=== PATIENT | male | born 1940 | race Caucasian/White ===

== ENCOUNTER → 2020-10-27 11:06 | Outpatient (CLI) | payer MEDICARE, OTHER, SELFPAY ==
--- NOTE | 2020-10-27 | DI.RAD.S_ITS ---
PROCEDURE: [place] SHOULDER INJECTION MR/CT LT INDICATIONS: Impingement syndrome of left shoulder COMPARISON: [facility], CT, CT UE LT W SU, 10/27/2020, 11:45. TECHNIQUE: The indications, alternatives, benefits, risks, and complications of the procedure were explained to the patient. Written informed consent was obtained and placed in the chart. The shoulder was examined fluoroscopically and a site for needle placement chosen for entry into the glenohumeral joint from an anterior approach. The skin was prepped and draped in a sterile fashion, and 1% lidocaine infiltrated from skin down to joint capsule. A spinal needle was inserted into the glenohumeral joint, and a small amount of iodinated contrast media injected to confirm intra-articular placement of the needle tip. This was followed by approximately 12 mL of iodinated contrast. The needle was removed and a dressing was applied. The patient was given postprocedural instructions and sent to the CT suite for imaging. FINDINGS: A single fluoroscopic spot image demonstrates intra-articular location of injected iodinated contrast. IMPRESSION: Successful fluoroscopically guided administration of iodinated contrast solution into the shoulder joint for CT arthrogram. Dictated by: Ben Lowry M.D. on 10/27/2020 at 12:27 Approved by: Ben Lowry M.D. on 10/27/2020 at 12:28
--- NOTE | 2020-10-27 11:47 | DI.CT.S_ITS ---
PROCEDURE: CT UE LT W CON INDICATIONS: Impingement syndrome of left shoulder TECHNIQUE: After the intra-articular administration of 12 mL of dilute non-ionic contrast, 1-1.5 mm thick sections acquired from the acromioclavicular joint to the inferior scapula, with coronal and sagittal reformatting. COMPARISON: [facility] [place], CR, XR SHOULDER 2+ VIEWS LEFT, 07/30/2019, 9:58. [facility], , [place] SHOULDER INJECTION MR/CT LT, 10/27/2020, 12:21. FINDINGS: Image quality: Excellent. Rotator cuff: There is full-thickness, near complete tearing of the supraspinatus tendon and the anterior fibers of the infraspinatus tendon from their distal insertions with proximal tendon retraction measuring approximately 2.3 cm. The tear measures approximately 1.4 cm in anterior-posterior dimension. A few attenuated far anterior supraspinatus fibers may remain in continuity. The teres minor tendon appears to be intact. There is focal low to moderate grade intrasubstance and articular sided tearing of the subscapularis tendon at the superior insertion. There is no significant rotator cuff muscle atrophy. Bones: There is no acute fracture or dislocation. Moderate acromioclavicular joint degenerative changes are present. No focal glenohumeral cartilage defect is identified. No intra-articular loose body is identified in the glenohumeral joint space. Contrast material in the subacromial/subdeltoid bursa communicates with the glenohumeral joint space. Soft tissues: There is nondisplaced tearing of the posterosuperior labrum. The anterior labrum appears diminutive, which may be secondary to prior tearing or degeneration. The biceps long head tendon appears to be intact. A few 3-4 mm nodules are seen in the peripheral portion of included left upper lobe. A cardiac pacemaker is seen with pulse generator in the left chest. IMPRESSION: 1. Full-thickness, near complete tearing of the supraspinatus tendon and the anterior fibers of the infraspinatus tendon measuring 1.4 cm in anterior-posterior dimension with proximal tendon retraction of up to 2.3 cm. 2. Focal moderate grade intrasubstance and articular sided partial tearing of the subscapularis tendon at the superior insertion. 3. Nondisplaced tearing of the posterosuperior labrum. Diminutive appearance of the anterior labrum may be secondary to chronic tearing and/or degeneration. 4. Moderate acromioclavicular joint osteoarthrosis. 5. Nonspecific 3-4 mm nodules in the peripheral portion of the left upper lobe are most likely benign. If the patient has pulmonary risk factors, a CT chest may be obtained to evaluate for additional nodules. Dictated by: Berny Merritt M.D. on 10/27/2020 at 11:28 Approved by: Berny Merritt M.D. on 10/27/2020 at 11:45
== END ==
PROVIDERS: Referring Provider Orthopaedic Surgery; Visit Provider Orthopaedic Surgery
DX: M75.42 Impingement syndrome of left shoulder (principal); M75.122 Complete rotator cuff tear or rupture of left shoulder, not specified as traumatic; M19.012 Primary osteoarthritis, left shoulder; S43.492A Other sprain of left shoulder joint, initial encounter; R91.8 Other nonspecific abnormal finding of lung field; Z95.0 Presence of cardiac pacemaker
CPT/HCPCS: 23350; 73201; 77002

== ENCOUNTER → 2021-07-16 11:32 | Outpatient (CLI) | payer MEDICARE, OTHER, SELFPAY ==
--- NOTE | 2021-07-16 | DI.CT.S_ITS ---
PROCEDURE: CT THORACIC SPINE WO CON INDICATIONS: Spinal stenosis, lumbar and thoracic region TECHNIQUE: Noncontrast 3 mm thick sections acquired through the region of interest in the thoracic spine. Sagittal and coronal reformats were then constructed. For radiation dose reduction, the following was used: automated exposure control. COMPARISON: None. FINDINGS: Image quality: Excellent. Bones: There is normal overall bony alignment. No acute vertebral body compression fractures. No suspicious sclerotic or lytic bony lesions. Central spinal canal is of normal overall caliber. Disc space narrowing and anterolateral osteophytes noted in the lower thoracic spine Soft tissues: No paravertebral masses or hematomas. Visualized posteromedial lungs appear clear. Partially imaged heart size is enlarged, there is dense coronary artery vascular calcification as well as pacer leads noted. Surgical clips noted in the gallbladder fossa. IMPRESSION: 1. 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 Incidental cardiomegaly, dense coronary artery vascular calcification and pacer leads Approved by: William Alan M.D. on 07/16/2021 at 13:18
--- NOTE | 2021-07-16 | DI.CT.S_ITS ---
PROCEDURE: CT LUMBAR SPINE WO CON INDICATIONS: Spinal stenosis, lumbar and thoracic region TECHNIQUE: Noncontrast 3 mm thick sections acquired from the T12 level to the sacrum. Sagittal and coronal reformats were constructed. For radiation dose reduction, the following was used: automated exposure control. COMPARISON: [facility], CT, L-SPINE WITHOUT CONTRAST, 09/01/2016, 9:15. FINDINGS: Image quality: Excellent. Bones: There is mild straightening of normal lumbar lordosis. No acute vertebral body compression fractures or spondylolisthesis. No suspicious lytic or blastic bony lesions. No pars defects. T12-L1: Degenerative endplate changes are seen. No significant disc bulge, canal stenosis or neural foraminal narrowing. L1-L2: Degenerative endplate changes are noted with mild loss of disc height. No significant disc bulge, canal stenosis or neural foraminal narrowing. L2-L3: There is loss of disc height and degenerative endplate changes. Broad-based disc bulge and bilateral facet arthrosis is seen with hypertrophy of ligamentum flavum causing moderate central canal stenosis and mild bilateral neural foraminal narrowing. L3-L4: There is loss of disc height and degenerative endplate changes. Broad-based disc bulge and bilateral facet arthrosis is seen with hypertrophy of ligamentum flavum. There is moderate central canal stenosis and bilateral neural foraminal narrowing. L4-L5: Near complete loss of disc height and vacuum disc phenomenon is seen. Degenerative endplate changes are noted with broad-based disc bulge, bilateral facet arthrosis and hypertrophy of ligamentum flavum. There is moderate central canal stenosis and left worse than right bilateral neural foraminal narrowing. L5-S1: Loss of disc height and vacuum disc phenomenon is seen. Broad-based disc bulge and bilateral facet arthrosis is seen with mild central canal stenosis and moderate left worse than right bilateral neural foraminal narrowing. Soft tissues: No retroperitoneal masses or hematomas. Visualized aorta is normal in caliber. IMPRESSION: 1. Degenerative disc disease throughout lumbar spine causing [id number] central canal stenosis and bilateral neural foraminal narrowing as described above more prominent at L3-4 and L4-5 levels. 2. No acute lumbar spine fracture or dislocation. Dictated by: Sean Montero M.D. on 07/16/2021 at 12:21 Approved by: Sean Montero M.D. on 07/16/2021 at 13:27
== END ==
PROVIDERS: PCP Family Medicine; Referring Provider Physical Medicine & Rehabilitation Pain Medicine; Visit Provider Physical Medicine & Rehabilitation Pain Medicine
DX: M48.061 Spinal stenosis, lumbar region without neurogenic claudication (principal); M48.04 Spinal stenosis, thoracic region; M51.36 Other intervertebral disc degeneration, lumbar region; I25.10 Atherosclerotic heart disease of native coronary artery without angina pectoris; Z95.0 Presence of cardiac pacemaker
CPT/HCPCS: 72128; 72131

== ENCOUNTER → 2023-03-13 10:01 | Outpatient (CLI) | payer MEDICARE, OTHER, SELFPAY ==
--- NOTE | 2023-03-13 | DI.CT.S_ITS ---
PROCEDURE: CT LUMBAR SPINE WO CON INDICATIONS: Spondylosis TECHNIQUE: Noncontrast 3 mm thick sections acquired from the T12 level to the sacrum. Sagittal and coronal reformats were constructed. For radiation dose reduction, the following was used: automated exposure control. COMPARISON: [facility], CT, L-SPINE WITHOUT CONTRAST, 09/01/2016, 9:15. [facility], CT, CT LUMBAR SPINE WO CON, 07/16/2021, 11:37. [facility], CR, XR LUMBAR SPINE WITH OBLIQUES PLUS FLEXION EXTENSION, 02/28/2023, 15:35. FINDINGS: Image quality: Excellent. Bones: There is normal bony alignment. No acute vertebral body compression fractures. No suspicious lytic or blastic bony lesions. No pars defects. T12-L1: Normal. L1-L2: Normal. L2-L3: Mild loss of disc height is seen. Mild to moderate disc bulge is seen, with a central disc protrusion. Moderate bilateral neural foraminal narrowing can be seen, right worse than left. At least moderate central canal narrowing is seen. When comparison is made with the prior images, these findings are similar. L3-L4: At least moderate loss of disc height is seen. At least moderate disc bulge is seen, with a central disc protrusion. Mild to moderate facet hypertrophy can be seen. There is at least moderate bilateral neural foraminal narrowing. Moderate central canal narrowing is seen. No significant change from the prior. L4-L5: Moderate to severe loss of disc height is seen. Vacuum disc phenomenon is seen at this level. At least moderate disc bulge is seen, with a central disc protrusion. Mild to moderate facet hypertrophy is seen. At least moderate bilateral neural foraminal narrowing can be seen. At least moderate central canal narrowing is seen. Compared to the 2020 images, these imaging findings are similar. L5-S1: Moderate to severe loss of disc height is seen. Endplate irregularity and sclerosis can be seen. Vacuum disc phenomenon is seen at this level. Moderate disc bulge is seen. Posteriorly projected endplate osteophytes are seen. There is at least moderate left-sided and moderate to severe right-sided neural foraminal narrowing. Mild to moderate central canal narrowing is seen. When comparison is made with the prior images, these findings are similar. Soft tissues: No retroperitoneal masses or hematomas. Visualized aorta is normal in caliber. Atherosclerotic calcification is noted. AICD leads can be seen on the transportation inspector image. Cholecystectomy clips are seen. A normal appendix is incidentally noted. Gyuh-hx-[id number] circumferential bladder wall thickening can be seen. IMPRESSION: Multiple levels of lumbar spine degenerative change are seen, which are worst inferiorly. Compared to 2020, the imaging findings are similar. Sofr-ay-skerogwp circumferential bladder wall thickening can be seen. Please correlate with bladder outlet obstruction in a male patient this age. Additional findings: AICD Cholecystectomy Dictated by: Drake Kevin M.D. on 03/13/2023 at 15:19 Approved by: Drake Kevin M.D. on 03/13/2023 at 15:24
== END ==
PROVIDERS: PCP Physician Assistant; Referring Provider Physical Medicine & Rehabilitation Pain Medicine; Visit Provider Physical Medicine & Rehabilitation Pain Medicine
DX: M47.816 Spondylosis without myelopathy or radiculopathy, lumbar region (principal)
CPT/HCPCS: 72131

== ENCOUNTER 2024-08-01 12:04 | Emergency (ER) | payer MEDICARE, OTHER, SELFPAY ==
[2024-08-01] VITALS (20 sets, daily range): BP systolic 106–163; BP diastolic 45–85; PULSE 60–69; RESP 15–23; TEMP 36.7–37; O2SAT 94–99; BMI 26.5
--- NOTE | 2024-08-01 12:16 | EKG_ITS ---
[address] [address] Test Date: 2024-08-01 Pat Name: Bogdan Maya Department: [facility] Room: Gender: Male Sanitation Officer: NICOLE : 1940 Requested By: Order Number: [id number] Reading MD: Reuben Godfrey MD Measurements Intervals [place] Rate: 60 P: 68 WV: 240 QRS: 28 QRSD: 94 T: 32 QT: 462 QTc: 462 Interpretive Statements Atrial-paced rhythm with prolonged AV conduction T wave abnormality, consider anterior ischemia Prolonged QT NO PRIOR TRACING Electronically Signed On 08-01-2024 13:44:07 PDT by Reuben Godfrey MD
--- NOTE | 2024-08-01 12:17 | ED.FALL ---
HPI - Fall General Chief Complaint: Trauma Stated Complaint: Syncope w/ fall 2 days ago Time Seen by Provider: 08/01/24 12:17 Source: patient and EMS Mode of arrival: EMS History of Present Illness HPI Narrative: 84-year-old male was standing urinating 2 days ago when he passed out, fell, has contusion to the superior aspect of the base of the penis, and bruising to the scrotum, right lateral chest discomfort, right lateral abdominal discomfort, back pain, left forearm discomfort. Does not believe he hit his head. Had no nausea or vomiting. But he did pass out in the context of urinating while standing. He did not recall having any palpitation symptoms, no shaking symptoms, he had not have incontinence of stool. Related Data Allergies Allergy/AdvReac Type Severity Reaction Status Date / Time No Known Drug Allergies Allergy Verified 08/01/24 12:12 Review of Systems Review of Systems Narrative: see HPI Patient History Social History Smoking Status: Unknown if ever smoked Smoking Status: Unknown if ever smoked alcohol intake frequency: holidays/special occasions only Substance Use Type: does not use Exam Narrative Exam Narrative: GENERAL: Well-developed patient, in mild distress. HEAD: Atraumatic. Normocephalic. EYES: Pupils equal round and reactive. Extraocular motions intact. No scleral icterus. No injection or drainage. ENT: Nose without bleeding, purulent drainage. Throat without erythema, tonsillar hypertrophy or exudate. Airway patent. NECK: Trachea midline. Non tender CARDIOVASCULAR: Regular rate and rhythm without murmurs, gallops, or rubs. RESPIRATORY: Clear to auscultation. Breath sounds equal bilaterally. No wheezes, rales, or rhonchi. Tenderness to right lateral chest without ecchymoses or crepitance, extending beyond costal margin to right upper quadrant. 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 Abdomen soft, non-tender, nondistended. Tenderness to right upper quadrant and right mid axillary, tenderness right middle and right lower quadrant. No guarding or rebound tenderness. EXTREMITIES: No edema or joint tenderness. BACK: Nontender without deformity or crepitance. No flank tenderness. NEURO: AOx3. Grossly nonfocal neuro exam. SKIN: No rash or erythema of visible areas Initial Vital Signs Initial Vital Signs: Vital Signs Temperature 98.0 F 08/01/24 12:04 Pulse Rate 66 08/01/24 12:04 Respiratory Rate 15 08/01/24 12:04 Blood Pressure 126/71 08/01/24 12:04 Pulse Oximetry 99 08/01/24 12:04 Oxygen Delivery Method Room Air 08/01/24 12:04 Course Orders Ordered: ED Orders 08/01/24 12:09 Complete Blood Count AUTO DIFF Stat Comprehensive Metabolic Panel Stat Ethanol (ETOH) Stat Lactate (Lactic Acid) Stat Lipase Stat PTT Partial Thromboplastin Tera Stat Prothrombin Time INR Stat Troponin I Stat 08/01/24 12:16 EKG-12 Lead Stat 08/01/24 12:18 CT Trauma Chest Abdomen Pelvis Stat 08/01/24 12:19 CT cervical spine wo con Stat CT head/brain wo con Stat 08/01/24 12:39 Type and Screen Stat 08/01/24 13:52 Urine Drug Screen, Rapid Stat 08/01/24 14:04 US scrotum Stat 08/01/24 14:07 XR forearm LT 2V Stat Discontinued Medications Diphtheria/Tetanus/Acell Pertussis (Tet,Diph,Pertuss(Acell),Vac/Pf 0.5 Ml Syringe) 0.5 ml IM .ONCE ONE Stop: 08/01/24 12:19 Last Admin: 08/01/24 12:44 Dose: Not Given Documented By: NALLELY Sodium Chloride (Normal Saline 0.9%) 1,000 mls @ 1,000 mls/hr IV BOLUS ONE Stop: 08/01/24 13:17 Last Infusion: 08/01/24 14:08 Dose: Infused Documented By: Admin: 08/01/24 12:43 Dose: 1,000 mls/hr Documented By: NALLELY Vital Signs Vital signs: Vital Signs - 8 hr 08/01/24 13:00 08/01/24 13:00 08/01/24 13:15 Pulse Rate 66 Respiratory Rate 20 Blood Pressure 129/61 151/67 H Pulse Oximetry 97 08/01/24 13:15 08/01/24 13:30 08/01/24 13:30 Pulse Rate 64 65 Respiratory Rate 20 17 Blood Pressure 136/63 Pulse Oximetry 98 97 08/01/24 14:00 08/01/24 14:00 08/01/24 14:30 Pulse Rate 67 66 Respiratory Rate Blood Pressure 163/66 H Pulse Oximetry 98 08/01/24 14:31 08/01/24 14:31 08/01/24 15:00 Pulse Rate 64 Respiratory Rate Blood Pressure 142/65 H 139/65 Pulse Oximetry 98 08/01/24 15:00 08/01/24 15:30 08/01/24 15:37 Pulse Rate 61 60 Respiratory Rate Blood Pressure 146/66 H Pulse Oximetry 98 99 08/01/24 15:37 08/01/24 15:37 08/01/24 16:00 Pulse Rate 60 Respiratory Rate Blood Pressure 146/66 H 152/70 H Pulse Oximetry 08/01/24 16:00 08/01/24 16:30 08/01/24 16:30 Pulse Rate 66 67 Respiratory Rate 18 Blood Pressure 160/70 H Pulse Oximetry 98 98 08/01/24 17:00 08/01/24 17:00 08/01/24 17:18 Pulse Rate 65 60 Respiratory Rate 23 Blood Pressure 150/85 H Pulse Oximetry 98 99 08/01/24 17:21 08/01/24 17:30 Pulse Rate 64 Respiratory Rate 22 Blood Pressure 108/53 L Pulse Oximetry 99 - Fall Lab Data Attestation: I reviewed the patient's lab results. 08/01/24 12:09 08/01/24 12:09 Labs: Lab Results 08/01/24 08/01/24 08/01/24 Range/Units 12:09 12:39 13:52 WBC 5.9 (4.5-11.0) X10^3/uL RBC 3.52 L (4.5-5.9) X10^6/uL Hgb 11.0 L (13.5-17.5) g/dL Hct 32.8 L (41-53) % MCV 93.1 (80-100) fL MCH 31.3 (26-34) PG MCHC 33.7 (30-36) % RDW 14.3 (11.6-14.8) % Plt Count 246 (150-400) X10^3/uL Neut % (Auto) Not Reportable Lymph % (Auto) Not Reportable [place] % (Auto) Not Reportable Eos % (Auto) Not Reportable Baso % (Auto) Not Reportable Lymph # (Auto) Not Reportable [place] # (Auto) Not Reportable Baso # (Auto) Not Reportable Total Counted 100 Seg Neutrophils % 63.0 (38-70) % Band Neutrophils % 1.0 L (3-7) % Lymphocytes % (Manual) 20.0 L (25-45) % Monocytes % (Manual) 16.0 H (2-11) % Neutrophils # (Manual) 3776 ([phone]) /uL RBC Morphology See below Poikilocytosis 1+ H Acanthocytes (Spur) 1+ PT 19.1 H (9.4-12.5) SECONDS INR 1.7 H (0.9-1.3) APTT 40 H (25.1-36.5) SECONDS Sodium 137 (137-145) mmol/L Potassium 4.2 (3.4-5.1) mmol/L Chloride 108 H (98-107) mmol/L Carbon Dioxide 22 (22-32) mmol/L BUN 19 (9-20) mg/dL Creatinine 1.27 H (0.66-1.25) mg/dL Estimated GFR 55 L (>60) mL/min BUN/Creatinine Ratio 15.0 (6-22) Glucose 125 H (80-110) mg/dL Lactate 0.8 (0.7-2.1) mmol/L Calcium 7.7 L (8.4-10.2) mg/dL Total Bilirubin 0.5 (0.2-1.3) mg/dL AST 44 (17-59) IU/L ALT 24 (<50) IU/L Alkaline Phosphatase 59 (38-126) U/L Troponin I 0.050 H (0.01-0.034) ng/mL Total Protein 5.8 L (6.3-8.2) g/dL Albumin 3.3 L (3.5-5.0) g/dL Globulin 2.5 (1.7-4.1) g/dL Albumin/Globulin Ratio 1.3 (1.0-2.8) Lipase 73 (23-300) U/L U Opiates 300ng/mL cut Negative (Negative) Ur Oxycodone Screen Negative (Negative) Urine Methadone Screen Negative (Negative) Ur Barbiturates Screen Negative (Negative) U Tricyclic Antidepress Negative (Negative) Ur Phencyclidine Scrn Negative (Negative) Ur Amphetamines Screen Negative (Negative) U Methamphetamines Scrn Negative (Negative) Ur MDMA Scrn (Ecstasy) Negative (Negative) U Benzodiazepines Scrn Negative (Negative) Urine Cocaine Screen Negative (Negative) U Marijuana (THC) Screen Negative (Negative) Urine pH Normal (Normal) Urine Specific [place] Normal (Normal) Ethyl Alcohol < 10 ( - 10) mg/dL Ur Creatinine Normal (Normal) Blood Type A Positive Antibody Screen Negative Point of Care Testing Glucose POC 131 Urine Dip Bedside Urine Glucose Negative Bedside Urine Bilirubin - Negative Bedside Urine Ketone - Negative Urine Specific [place] 1.000 Bedside Urine Occult Blood - Negative Bedside Urine pH 6.5 Bedside Urine Protein - Negative Bedside Urine Urobilinogen - Negative Bedside Urine Nitrite - Negative Bedside Urine Leukocytes - Negative Esterase Imaging Data Ultrasound scrotum: Radiologist's Impression: [address] [address] Ultrasound Report Signed Patient: Bogdan Maya MR#: [id number] : 1940 Acct:[id number] Age/Sex: 84 / M Date of Service: 08/01/24 Loc: ED Accession Number: [id number] Procedure: US scrotum Ordering Provider: London Dong MD PROCEDURE: US SCROTUM INDICATIONS: fall, bruised tender srotum bilateral TECHNIQUE: Real-time scanning was performed of the scrotum and testicles, with image documentation. Color and pulse Doppler interrogation was performed of both testicles. COMPARISON: None. FINDINGS: Right: Testicle is normal in size at 3.5 x 2.6 x 2.2 cm, and homogenous in echotexture. Epididymis is normal in overall size and morphology. No hydrocele or varicoceles. Overlying scrotal skin is normal in thickness. Left: Testicle is normal in size at 3.8 x 2.8 x 1.8 cm, and homogeneous in echotexture. Epididymis is normal in overall size and morphology. Hydrocele with septations and internal echogenic debris. Overlying scrotal skin is normal in thickness. Doppler: Color and pulse Doppler demonstrate normal and symmetric arterial flow in both testicles. Within the subcutaneous tissues above the penis, there is a hypoechoic collection with heterogeneous echogenicity measuring 6.3 x 2.0 x 2.2 cm. IMPRESSION: Within the subcutaneous tissues above the penis, there is a hypoechoic collection with heterogeneous echogenicity measuring 6.3 x 2.0 x 2.2 cm. Findings are favored to represent a hematoma in the setting of trauma, less likely mass such as sarcoma. Consider six-month follow-up with ultrasound. Complex left-sided hydrocele, probably post infectious. No evidence of infection at this time. Dictated by: Nino Oleary M.D. on 08/01/2024 at 15:26 Approved by: Nino Oleary M.D. on 08/01/2024 at 15:28 CT scan - head: Radiologist's Impression: Close Forearm X-Ray (Signed) Lali Dixon - 08/01/24 Scrotum Ultrasound (Signed) Nino Oleary - 08/01/[address] (Signed) Edson Conner - 08/01/[address] (Signed) Edson Conner - 08/01/24 Chest/Abdomen/Pelvis CT (Signed) Edson Conner - 08/01/24 Launch?[place] [address] CT Scan Report Signed Patient: Bogdan Maya MR#: [id number] : 1940 Acct:[id number] Age/Sex: 84 / M Date of Service: 08/01/24 Loc: ED Accession Number: [id number] Procedure: CT head/brain wo con Ordering Provider: London Dong MD PROCEDURE: CT HEAD/BRAIN WO CON INDICATIONS: FELL THREE DAYS AGO TECHNIQUE: Noncontrast 4.5 mm thick angled axial sections acquired from the foramen magnum to the vertex, with coronal and sagittal reformats. For radiation dose reduction, the following was used: automated exposure control, adjustment of mA and/or kV according to patient size. COMPARISON: None. FINDINGS: Image quality: Diagnostic. CSF spaces: Basal cisterns are patent. No extra-axial fluid collections. The ventricles are symmetric in size and shape. Brain: No intracranial bleeds or masses. There is cerebral volume loss for age, with resultant ventricular and sulcal prominence. There are periventricular and deep white matter chronic small vessel ischemic changes. There is intracranial internal carotid artery atherosclerosis. Skull and face: Calvarium and visualized facial bones appear intact, without suspicious lesions. Sinuses: Visualized sinuses and mastoids are clear. IMPRESSION: No acute intracranial pathology. Dictated by: Edson Conner M.D. on 08/01/2024 at 15:27 Approved by: Edson Conner M.D. on 08/01/2024 at 15:28 CT - cervical spine: Radiologist's Impression: Close Forearm X-Ray (Signed) Lali Dixon - 08/01/24 Scrotum Ultrasound (Signed) Nino Oleary - 08/01/[address] (Signed) Edson Conner - 08/01/[address] (Signed) Edson Conner - 08/01/24 Chest/Abdomen/Pelvis CT (Signed) Edson Conner - 08/01/24 Launch?[facility] [address] [address] [address] Scan Report Signed Patient: Bogdan Maya MR#: [id number] : 1940 Acct:[id number] Age/Sex: 84 / M Date of Service: 08/01/24 Loc: ED Accession Number: [id number] Procedure: CT cervical spine wo con Ordering Provider: London Dong MD PROCEDURE: CT CERVICAL SPINE WO CON INDICATIONS: FELL THREE DAYS AGO TECHNIQUE: Noncontrast 3 mm thick sections acquired from the skull base to the T4 level. Sagittal and coronal reformats were then constructed. For radiation dose reduction, the following was used: automated exposure control, adjustment of mA and/or kV according to patient size. COMPARISON: None. FINDINGS: Image quality: Excellent. Bones: No fractures or dislocations. Visualized superior ribs are intact. Moderately severe cervical spondylosis. Trace anterolisthesis of C4 on C5 is felt to be degenerative in nature secondary to bilateral facet arthropathy. There is multilevel facet arthropathy. There is multilevel bony foraminal narrowing. Soft tissues: Prevertebral soft tissues are normal in thickness. No paravertebral hematomas. No apical pneumothoraces. IMPRESSION: 1. No acute cervical fracture or dislocation. 2. Cervical spondylosis. Dictated by: Edson Conner M.D. on 08/01/2024 at 15:28 Approved by: Edson Conner M.D. on 08/01/2024 at 15:31 CT chest abdomen and pelvis with IV contrast: Radiologist's Impression: [address] [address] [address] Scan Report Signed Patient: Bogdan Maya MR#: [id number] : 1940 Acct:[id number] Age/Sex: 84 / M Date of Service: 08/01/24 Loc: ED Accession Number: [id number] Procedure: CT Trauma Chest Abdomen Pelvis Ordering Provider: London Dong MD PROCEDURE: CT TRAUMA CHEST ABDOMEN PELVIS INDICATIONS: FELL THREE DAYS AGO TECHNIQUE: After the administration of intravenous contrast, 5 mm thick sections acquired from the lung apices to the symphysis. 2.5 mm thick coronal and sagittal reformats were acquired. Additional 7 mm thick coronal maximum intensity projection (MIP) reformats acquired through the lungs. Optional 10-minute delayed imaging may be performed from the kidneys to the bladder. For radiation dose reduction, the following was used: automated exposure control, adjustment of mA and/or kV according to patient size. COMPARISON: [facility], , SCROTUM, 08/01/2024, 14:20. FINDINGS: Image quality: Diagnostic. CHEST: Lower Neck: No enlarged lymph nodes. Thyroid: No thyroid nodules which require sonographic evaluation. Axillae: No enlarged lymph nodes. Chest Wall: No subcutaneous gas. Lungs and Pleura: No pulmonary contusions or lacerations. No acute airspace opacities. No pneumothorax or hemothorax. Mediastinum: No mediastinal hematomas. Mild cardiomegaly. Severe coronary artery calcifications. Pacemaker. No pericardial effusion. Thoracic aorta and pulmonary arteries demonstrate normal size and enhancement. No mediastinal or hilar adenopathy. Esophagus is normal in caliber. No hiatal hernia. ABDOMEN: Liver: No lacerations. Gallbladder: Surgically absent Biliary ducts: No biliary dilation. Pancreas: Homogenous enhancement. Spleen: Surgically absent Adrenal Glands: Symmetric enhancement. Kidneys and Ureters: Symmetric enhancement. No hydronephrosis. No solid mass. No complex renal cystic lesion which requires follow up. Stomach and Bowel: Normal colonic caliber, without significant wall thickening. Peritoneum: No abnormal intraperitoneal fluid. No free air. Ventral Wall: No hernia. Abdominal Nodes: No retroperitoneal or mesenteric adenopathy by size criteria. Vessels: Aorta and inferior vena cava are normal in size. PELVIS: Pelvic Organs: Severe prostatomegaly.. Bladder: Normal thickness. Pelvic Nodes: No enlarged lymph nodes. Miscellaneous: No inguinal hernias are seen. There is a hematoma present in the right inguinal canal which measures 6.4 x 2.2 x 2.7 cm. Bones: Pelvic ring and hip joints appear intact. No displaced rib fractures. IMPRESSION: 1. Hematoma, right inguinal canal. 2. No other significant sequelae of acute trauma in the chest, abdomen, and pelvis. 3. Mild cardiomegaly, severe coronary artery calcifications. 4. Remote splenectomy and cholecystectomy. 5. Severe prostatomegaly. Dictated by: Edson Conner M.D. on 08/01/2024 at 15:32 Approved by: Edosn Conner M.D. on 08/01/2024 at 15:45 [facility] Narrative Medical decision making narrative: 84-year-old male had syncopal episode 2 days ago, standing while urinating, ground level fall, with bruising and pain complaint of the base penis on the cephalad side, bruising and swelling to both sides scrotum, right chest pain, right lateral abdominal pain. Modified trauma activation Primary survey: ABC's intact, GCS 15, no neuro deficits Secondary survey: See physical exam sections. CT head, C-spine, CT chest abdomen and pelvis trauma protocol. X-ray left forearm. Ultrasound scrotum. Labs pending. CT Chest Abdomen Pelvis showed left inguinal hematoma, see radiology report. 1430, verbal report sono tech scrotal ultrasound, subcutaneous hematoma at base of the penis area right groin, 6.3 x 2 cm, without internal flow. Scrotum unremarkable, normal flow, no obvious testicular injuries. Left complex appearing hydrocele 18 mm incidentally noted. Await Radiology over-read. Tolerated ambulation trial. Recheck advised early next week. Further testing as an outpatient for now. Home with family Critical Care Time Critical Care Time Critical Care Time: Yes Total Critical Care Time: 31 Attestation: The high probability of a clinically significant, sudden or life threatening deterioration of the [abdominopelvic, cardiothoracic, genitourinary] system(s) required my full and direct attention, intervention and personal management. The aggregate critical care time was [31] minutes. This time is in addition to time spent performing reported procedures but includes the following: [x] Data Review and interpretation [x] Patient assessment and monitoring of vital signs [x] Documentation [x] Medication orders and management Discharge Plan Departure Patient Disposition: Home Clinical Impression: Episode of syncope, Fall from ground level, Contusion of forearm, left, Chest wall contusion, Abdominal wall contusion, Hematoma Activity Restrictions/Additional Instructions: Recent passing out episode 2 days ago, with fall, and pain to the right chest and abdomen, with bruising to the right side of the penile area and bruising extending down into the scrotum. No tenderness in the scrotum however. No problems urinating. CT head study negative, CT cervical spine negative, CT chest abdomen and pelvis showed no spinal injuries but did show presence of hematoma blood collection in the right inguinal canal near the area on exam noted. No active bleeding noted. X-ray forearm showed no fractures. Ultrasound of the scrotum itself showed good blood flow to the testes, and no intrascrotal hematoma, the bruising hematoma changes appears to all be in inguinal/groin canal area. Recheck symptoms with your regular doctor on Monday. Return to this/nearest emergency department for any change worsening symptoms or any concerns prior Referrals: Alla Brown PA-C [Primary Care Provider] - Stand Alone Forms: Patient Portal/API
[2024-08-01 12:38] LABS: Hematocrit 32.8 % (41-53); Mean Corpuscular HGB Conc 33.7 % (30-36); Mean Corpuscular Hemoglobin 31.3 PG (26-34); Mean Corpuscular Volume 93.1 fL (80-100); Platelet Count 246 X10^3/uL (150-400); Red Blood Cell Count 3.52 X10^6/uL (4.5-5.9); Red Cell Distribution Width 14.3 % (11.6-14.8); White Blood Cell Count 5.9 X10^3/uL (4.5-11.0)
[2024-08-01 12:39] LABS: INR 1.7 (0.9-1.3); Prothrombin Time 19.1 SECONDS (9.4-12.5)
[2024-08-01 12:40] LABS: Add Manual Diff / Slide Review YES
[2024-08-01 12:42] LABS: PTT Partial Thromboplastin Tim 40 SECONDS (25.1-36.5)
[2024-08-01] MEDS: SODIUM CHLORIDE 0.9% 1,000 ML 1000 ML IV (12:43)
[2024-08-01 12:49] LABS: Alanine Aminotransferase 24 IU/L (<50); Albumin 3.3 g/dL (3.5-5.0); Albumin Globulin Ratio 1.3 (1.0-2.8); Alkaline Phosphatase 59 U/L (38-126); Aspartate Aminotransferase 44 IU/L (17-59); Bilirubin Total 0.5 mg/dL (0.2-1.3); Blood Urea Nitrogen 19 mg/dL (9-20); Calcium 7.7 mg/dL (8.4-10.2); Carbon Dioxide 22 mmol/L (22-32); Chloride 108 mmol/L (98-107); Estimated Glomerular Filt Rate 55 mL/min (>60); Ethanol (ETOH) < 10 mg/dL; Globulin 2.5 g/dL (1.7-4.1); Glucose 125 mg/dL (80-110); HEMOLYSIS 21 (0-50); Lipase 73 U/L (23-300); Potassium 4.2 mmol/L (3.4-5.1); Sodium 137 mmol/L (137-145); Total Protein 5.8 g/dL (6.3-8.2)
[2024-08-01 12:58] LABS: Lactate (Lactic Acid) 0.8 mmol/L (0.7-2.1)
[2024-08-01 13:00] LABS: Neutrophils Absolute Manual 3776 /uL (3000-5900); Total Cells Counted 100
[2024-08-01 13:05] LABS: Acanthocytes 1+
[2024-08-01 13:06] LABS: Poikilocytosis 1+
--- NOTE | 2024-08-01 14:04 | DI.US.S_ITS ---
PROCEDURE: US SCROTUM INDICATIONS: fall, bruised tender srotum bilateral TECHNIQUE: Real-time scanning was performed of the scrotum and testicles, with image documentation. Color and pulse Doppler interrogation was performed of both testicles. COMPARISON: None. FINDINGS: Right: Testicle is normal in size at 3.5 x 2.6 x 2.2 cm, and homogenous in echotexture. Epididymis is normal in overall size and morphology. No hydrocele or varicoceles. Overlying scrotal skin is normal in thickness. Left: Testicle is normal in size at 3.8 x 2.8 x 1.8 cm, and homogeneous in echotexture. Epididymis is normal in overall size and morphology. Hydrocele with septations and internal echogenic debris. Overlying scrotal skin is normal in thickness. Doppler: Color and pulse Doppler demonstrate normal and symmetric arterial flow in both testicles. Within the subcutaneous tissues above the penis, there is a hypoechoic collection with heterogeneous echogenicity measuring 6.3 x 2.0 x 2.2 cm. IMPRESSION: Within the subcutaneous tissues above the penis, there is a hypoechoic collection with heterogeneous echogenicity measuring 6.3 x 2.0 x 2.2 cm. Findings are favored to represent a hematoma in the setting of trauma, less likely mass such as sarcoma. Consider six-month follow-up with ultrasound. Complex left-sided hydrocele, probably post infectious. No evidence of infection at this time. Dictated by: Nino Oleary M.D. on 08/01/2024 at 15:26 Approved by: Nino Oleary M.D. on 08/01/2024 at 15:28
--- NOTE | 2024-08-01 14:07 | DI.RAD.S_ITS ---
PROCEDURE: XR FOREARM LT 2V INDICATIONS: forearm pain after GLF TECHNIQUE: 2 views of the forearm were acquired. COMPARISON: None. FINDINGS: Bones: No fractures or dislocations. No suspicious bony lesions. Soft tissues: No suspicious soft tissue calcifications or masses. IMPRESSION: No visualized acute fracture or dislocation. However, if clinical concern and/or pain persist, short interval imaging followup in 7-10 days is recommended, as occult injury cannot be definitively excluded. Dictated by: Lali Dixon M.D. on 08/01/2024 at 15:36 Approved by: Lali Dixon M.D. on 08/01/2024 at 15:36
[2024-08-01 14:26] LABS: Ur Creatinine Normal (Normal); Ur Specific Gravity Normal (Normal); Urine Amphetamines Negative (Negative); Urine Barbiturates Negative (Negative); Urine Benzodiazepines Negative (Negative); Urine Cocaine Negative (Negative); Urine MDMA Negative (Negative); Urine Methadone Negative (Negative); Urine Methamphetamines Negative (Negative); Urine Opiates Negative (Negative); Urine Oxycodone Negative (Negative); Urine Phencyclidine Negative (Negative); Urine THC Negative (Negative); Urine Tricyclic Antidepressant Negative (Negative); Urine pH Normal (Normal)
--- NOTE | 2024-08-01 17:20 | PC.NURSE ---
Ambulated pt to bathroom with walker and standby assist. Pt reports feeling a little bit dizzy when he stood up. HR remained in 60s and O2 sat above 95%. Dr leung notified
== END 2024-08-01 18:28 | disposition home or self-care (01) ==
PROVIDERS: Emergency Provider Emergency Medicine; PCP Physician Assistant
DX: R55 Syncope and collapse (principal); S20.211A Contusion of right front wall of thorax, initial encounter; S30.1XXA Contusion of abdominal wall, initial encounter; S50.12XA Contusion of left forearm, initial encounter; S39.94XA Unspecified injury of external genitals, initial encounter; S09.90XA Unspecified injury of head, initial encounter; R07.9 Chest pain, unspecified; W18.30XA Fall on same level, unspecified, initial encounter
CPT/HCPCS: 70450; 71275; 72125; 73090; 74177; 76870; 80053; 80305; 80320; 81003; 82962; 83605; 83690; 84484; 85007; 85025; 85610; 85730; 86850; 86900; 86901; 93005; 93010; 93975; 96360; 99285; Q9967

== ENCOUNTER → 2025-11-07 10:28 | Outpatient (CLI) | payer MEDICARE, OTHER, SELFPAY ==
--- NOTE | 2025-11-07 10:32 | DI.RAD.S_ITS ---
PROCEDURE: XR LUMBAR SPINE MIN 4V INDICATIONS: low back pain TECHNIQUE: 5 views of the lumbar spine acquired, including flexion and extension views. COMPARISON: None. FINDINGS: Bones: 5 nonrib-bearing vertebrae are present. No acute vertebral body compression fractures. No suspicious bony lesions. Grade 1 L2 on L3 retrolisthesis. No scoliosis. Moderate to marked L2-3, L3-4, L4-5 and L5-S1 disc narrowing. Facet arthropathy most severe at L4-5 and L5-S1. Soft tissues: Overlying bowel gas pattern is normal. Atheromatous calcified plaques noted in the abdominal aorta. Otherwise, no suspicious soft tissue calcifications. Status post cholecystectomy. Flexion/extension: There is normal range of motion, with preserved normal alignment. IMPRESSION: No acute fracture. Multilevel degenerative disc and facet arthropathy. See above. Dictated by: Leah Self M.D. on 11/09/2025 at 19:17 Approved by: Leah Self M.D. on 11/09/2025 at 19:19
== END ==
PROVIDERS: PCP Physician Assistant; Referring Provider Physical Medicine & Rehabilitation; Visit Provider Physical Medicine & Rehabilitation
DX: M47.816 Spondylosis without myelopathy or radiculopathy, lumbar region (principal); M47.817 Spondylosis without myelopathy or radiculopathy, lumbosacral region; M54.50 Low back pain, unspecified; I70.0 Atherosclerosis of aorta; Z90.49 Acquired absence of other specified parts of digestive tract
CPT/HCPCS: 72110